=== PATIENT | female | born 1980 | race Hispanic/Latino ===

== ENCOUNTER 2017-05-27 00:22 | Inpatient (IN) | payer BC ==
--- NOTE | 2017-05-27 00:40 | ED PDOC ---
Arrival/HPI - General Chief Complaint: Female Genitourinary Time Seen by Provider: 05/27/17 00:27 Historian: Patient - History of Present Illness Narrative History of Present Illness (Text): 05/27/17 00:37 A 37 year old female, whose past medical history includes herniated disc, presents to the emergency department complaining of left sided flank pain that began this evening. The patient states that she is also experiencing nausea. The patient denies fevers, chills, headache, dizziness, chest pain, shortness of breath, dyspnea on exertion, cough, abdominal pain,vomiting, diarrhea, neck pain, urinary/bowel changes, or any other complaint. Time/Duration: Other (This Evening) Symptom Onset: Sudden Symptom Course: Worsening Activities at Onset: Rest, Light Context: Home Past Medical History - Provider Review Nursing Documentation Reviewed: Yes - Infectious Disease Hx of Infectious Diseases: None - Tetanus Immunization Tetanus Immunization: Unknown - Cardiac Hx Cardiac Disorders: No - Pulmonary Hx Respiratory Disorders: No - Neurological Hx Neurological Disorder: No - Renal Hx Kidney Stones: Yes - Hematological/Oncological Hx Blood Transfusions: No - Musculoskeletal/Rheumatological Hx Herniated Disk: Yes - Genitourinary/Gynecological Hx Urinary Tract Infection: Yes - Psychiatric Hx Substance Use: No - Surgical History Hx Orthopedic Surgery: Yes (Rt. arm) - Anesthesia Hx Anesthesia Reactions: No Hx Malignant Hyperthermia: No Family/Social History - Physician Review Nursing Documentation Reviewed: Yes Family/Social History: No Known Family HX Smoking Status: Heavy Smoker > 10 Cigarettes Daily Hx Alcohol Use: Yes Frequency of alcohol use: Daily Hx Substance Use: No Allergies/Home Meds Allergies/Adverse Reactions: Allergies No Known Allergies Allergy (Verified 10/23/15 15:44) Review of Systems - Physician Review All systems were reviewed & negative as marked: Yes - Review of Systems Constitutional: absent: Fevers, Night Sweats Respiratory: absent: SOB, Cough Cardiovascular: absent: Chest Pain, PRUITT Gastrointestinal: Nausea. absent: Abdominal Pain, Stool Changes, Diarrhea, Vomiting Genitourinary Female: absent: Urine Output Changes Musculoskeletal: Back Pain (Left flank pain). absent: Neck Pain Neurological: absent: Headache, Dizziness Physical Exam Vital Signs Reviewed: Yes Vital Signs Temp Pulse Resp BP Pulse Ox 05/27/17 00:29 97.6 F 88 17 151/99 H 100 Temperature: Afebrile Blood Pressure: Hypertensive Pulse: Regular Respiratory Rate: Normal Appearance: Positive for: Well-Appearing, Non-Toxic, Comfortable Pain Distress: None Mental Status: Positive for: Alert and Oriented X 3 - Systems Exam Head: Present: Atraumatic, Normocephalic Pupils: Present: PERRL Extroacular Muscles: Present: EOMI Conjunctiva: Present: Normal Mouth: Present: Moist Mucous Membranes Neck: Present: Normal Range of Motion Respiratory/Chest: Present: Clear to Auscultation, Good Air Exchange. No: Respiratory Distress, Accessory Muscle Use Cardiovascular: Present: Regular Rate and Rhythm, Normal S1, S2. No: Murmurs Abdomen: Present: Normal Bowel Sounds. No: Tenderness, Distention, Peritoneal Signs Back: Present: CVA Tenderness (Left CVA Tenderness) Upper Extremity: Present: Normal Inspection. No: Cyanosis, Edema Lower Extremity: Present: Normal Inspection. No: Edema Neurological: Present: GCS=15, CN II-XII Intact, Speech Normal Skin: Present: Warm, Dry, Normal Color. No: Rashes Psychiatric: Present: Alert, Oriented x 3, Normal Insight, Normal Concentration Medical Decision Making ED Course and Treatment: 05/27/17 00:41 Impression: A 37 year old female presents to the emergency department complaining of left sided flank pain with associated nausea that began this evening. Plan: -- Abdomen/Pelvis CT -- Urinalysis -- Morphine, Zofran, and IV Fluids -- Reassess and disposition Progress Notes: CT Abdomen and Pelvis Without Intravenous Contrast EXAM DATE/TIME: 05/27/2017 12:39 AM Dictated and Authenticated by: Nevaeh Garnett MD 05/27/2017 2:15 AM Eastern Time ([place] & [place]) IMPRESSION: - Severe left hydronephrosis, mildly increased in degree compared to a prior CT , with no causative obstructing stone identified. This could be due to a chronic left UPJ obstruction, although cannot rule out a recently passed stone or a left-sided urinary tract infection. - Mild bladder wall thickening. This is a nonspecific finding, but can be seen with cystitis. Recommend clinical correlation. - Mild biliary ductal dilatation, also seen on the prior CT, cause not identified. Recommend correlation with LFTs for laboratory evidence of biliary obstruction, and further work up as indicated. 05/27/17 02:26: Case discussed in detail with Dr. Cleve Valdez who accepts patient to her service. - Lab Interpretations Microbiology Results: Microbiology Results 05/27/17 01:00 Blood-Venous Blood Culture - Final NO GROWTH AFTER 5 DAYS 05/27/17 01:00 Blood-Venous Gram Stain - Final TEST NOT PERFORMED 05/27/17 00:30 Blood-Venous Blood Culture - Final NO GROWTH AFTER 5 DAYS 05/27/17 00:30 Blood-Venous Gram Stain - Final TEST NOT PERFORMED 05/27/17 00:30 Urine,Clean Catch Urine Culture - Final Escherichia Coli Lab Results: 05/27/17 00:30 05/27/17 00:30 Lab Results 05/27/17 00:30: pO2 63 H, VBG pH 7.39, VBG pCO2 41.0, VBG HCO3 24.8, VBG Total CO2 26.1, VBG O2 Sat (Calc) 95.8 H, VBG Base Excess -0.2 L, VBG Potassium 3.5 L , Sodium 139.0, Chloride 107.0, Glucose 95, Lactate 2.0, FiO2 21.0, Venous Blood Potassium 3.5 L 05/27/17 00:30: Sodium 143, Chloride 106, Potassium 3.5 L, Carbon Dioxide 25, Anion Gap 16, BUN 5 L, Creatinine 0.7, Est GFR ( Amer) > 60, Est GFR (Non -Af Amer) > 60, Random Glucose 94, Calcium 9.5, Total Bilirubin 0.4, AST 35, ALT 32, Alkaline Phosphatase 89, Total Protein 7.8, Albumin 4.3, Globulin 3.5, Albumin/Globulin Ratio 1.2 05/27/17 00:30: Urine Color Yellow, Urine Appearance Clear, Urine pH 7.5, Ur Specific [place] 1.020, Urine Protein 100 H, Urine Glucose (UA) Negative, Urine Ketones Negative, Urine Blood Trace-intact H, Urine Nitrate Negative, Urine Bilirubin Negative, Urine Urobilinogen 1.0 H, Ur Leukocyte Esterase Large H, Urine RBC 0 - 2, Urine WBC 25 - 30, Ur Epithelial Cells 1 - 3, Urine Bacteria Mod 05/27/17 00:30: WBC 14.0 H D, RBC 4.26, Hgb 13.7, Hct 40.3, MCV 94.6, MCH 32.2, MCHC 34.0, RDW 13.8, Plt Count 335, MPV 9.3, Gran % 66.8, Lymph % (Auto) 24.6, [place] % (Auto) 6.3 H, Eos % (Auto) 2.0, Baso % (Auto) 0.3, Gran # 9.32 H, Lymph # (Auto) 3.4, [place] # (Auto) 0.9 H, Eos # (Auto) 0.3, Baso # (Auto) 0.04 I have reviewed the lab results: Yes - RAD Interpretation Radiology Orders: 05/27/17 00:39 ABD & PELVIS W/O PO OR IV CONT [CT] Stat - Medication Orders Current Medication Orders: Discontinued Medications Acetaminophen (Tylenol 325mg Tab) 650 mg PO Q4H PRN PRN Reason: Fever >100.5 F Last Admin: 05/27/17 15:58 Dose: 650 mg [facility] Pain/Vitals Document 05/27/17 15:58 DSZ (Rec: 05/27/17 15:59 DSZ [facility] [id number] Pain Reassessment Is This A Pain ReAssessment? No Sleep Is patient sleeping during reassessment? No Presence of Pain Presence of Pain No Vitals Temperature (97.6 F-99.6 F) 101.8 F Temperature Source Oral Re-Assess: [facility] Pain/Vitals Document 05/27/17 16:58 DSZ (Rec: 05/27/17 17:22 DSZ [facility] [id number] Pain Reassessment Is This A Pain ReAssessment? No Sleep Is patient sleeping during reassessment? No Vitals Temperature (97.6 F-99.6 F) 100 F Temperature Source Axillary Acetaminophen (Tylenol 325mg Tab) 650 mg PO Q6H PRN PRN Reason: Fever >100.4 F Last Admin: 05/29/17 17:51 Dose: 650 mg [facility] Pain/Vitals Document 05/29/17 17:51 LMN (Rec: 05/29/17 17:51 LMN [facility] [id number] Pain Reassessment Is This A Pain ReAssessment? No Presence of Pain Presence of Pain Yes Pain Scale Used Pain Scale Used Numeric Location Left, Right or Bilateral Bilateral Pain Location Body Site Abdomen Description Throbbing Re-Assess: [facility] Pain/Vitals Document 05/29/17 18:51 MAD (Rec: 05/30/17 04:58 MAD [id number]) Pain Reassessment Is This A Pain ReAssessment? Yes Sleep Is patient sleeping during reassessment? Yes Guaifenesin/Dextromethorphan (Robitussin Dm) 5 ml PO Q4H PRN PRN Reason: Cough Last Admin: 05/28/17 10:21 Dose: 5 ml Hydromorphone HCl (Dilaudid) 2 mg IVP STAT STA Stop: 05/27/17 01:09 Last Admin: 05/27/17 01:18 Dose: 2 mg MAR Pain Assessment Document 05/27/17 01:18 RD (Rec: 05/27/17 01:18 RD [id number]) Pain Reassessment Is this a pain reassessment? No Sleep Is patient sleeping during reassessment? No Presence of Pain Presence of Pain Yes IVP Administration Document 05/27/17 01:18 RD (Rec: 05/27/17 01:18 RD [id number]) Charges for Administration # of IVP Administrations 1 Sodium Chloride (Sodium Chloride 0.9%) 1,000 mls @ 80 mls/hr IV .[id number] [facility] Last Admin: 05/29/17 04:37 Dose: 80 mls/hr eMAR Start Stop Document 05/29/17 04:37 MJ (Rec: 05/29/17 04:37 MJ [facility] [id number]) Intravenous Solution Start Date 05/29/17 Start Time 04:37 Ceftriaxone Sodium (Rocephin 1 Gram Ivpb) 1 gm in 100 mls @ 100 mls/hr IVPB DAILY VILLA PRN Reason: Protocol Last Admin: 05/28/17 10:21 Dose: 100 mls/hr eMAR Start Stop Document 05/28/17 10:21 LMN (Rec: 05/28/17 11:21 LMN [facility] [id number]) Intravenous Solution Start Date 05/28/17 Start Time 10:21 Sodium Chloride (Sodium Chloride 0.9%) 1,000 mls @ 100 mls/hr IV .Q10H STA Stop: 05/27/17 12:26 Last Admin: 05/27/17 04:03 Dose: 100 mls/hr eMAR Start Stop Document 05/27/17 04:03 RD (Rec: 05/27/17 04:03 RD [id number]) Intravenous Solution Start Date 05/27/17 Start Time 04:03 Sodium Chloride (Sodium Chloride 0.9%) 1,000 mls @ 125 mls/hr IV .Q8H [facility] Last Admin: 05/30/17 10:43 Dose: Not Given Non-Admin Reason: Patient Refused Meropenem 500 mg/ Sodium (Chloride) 50 mls @ 100 mls/hr IVPB Q8 VILLA PRN Reason: Protocol Stop: 06/04/17 15:16 Last Admin: 05/29/17 06:02 Dose: 100 mls/hr eMAR Start Stop Document 05/29/17 06:02 MJ (Rec: 05/29/17 06:02 MJ [facility] [id number]) Intravenous Solution Start Date 05/29/17 Start Time 06:02 End Date 05/29/17 End time 06:32 Total Infusion Time 30 Potassium Chloride (Potassium Chloride 10 Meq/100 Ml) 10 meq in 100 mls @ 50 mls/hr IVPB ONCE ONE Stop: 05/28/17 17:10 Last Admin: 05/28/17 17:26 Dose: 50 mls/hr eMAR Start Stop Document 05/28/17 17:26 LMN (Rec: 05/28/17 17:26 LMN [facility] [id number]) Intravenous Solution Start Date 05/28/17 Start Time 18:00 Ceftriaxone Sodium (Rocephin 2 Gm Ivpb) 2 gm in 100 mls @ 100 mls/hr IVPB DAILY VILLA PRN Reason: Protocol Last Admin: 05/30/17 10:39 Dose: 100 mls/hr eMAR Start Stop Document 05/30/17 10:39 DSZ (Rec: 05/30/17 10:39 DSZ [facility] [id number]) Intravenous Solution Start Date 05/30/17 Start Time 10:39 Morphine Sulfate (Morphine) 2 mg IVP STAT STA Stop: 05/27/17 00:42 Last Admin: 05/27/17 00:53 Dose: 2 mg MAR Pain Assessment Document 05/27/17 00:53 RD (Rec: 05/27/17 00:53 RD [id number]) Pain Reassessment Is this a pain reassessment? No Sleep Is patient sleeping during reassessment? No Presence of Pain Presence of Pain Yes IVP Administration Document 05/27/17 00:53 RD (Rec: 05/27/17 00:53 RD [id number]) Charges for Administration # of IVP Administrations 1 Morphine Sulfate (Morphine) 2 mg IVP Q4H PRN PRN Reason: Pain, moderate (4-7) Last Admin: 05/27/17 08:41 Dose: 2 mg MAR Pain Assessment Document 05/27/17 08:41 DSZ (Rec: 05/27/17 08:41 DSZ [id number]) Pain Reassessment Is this a pain reassessment? No Sleep Is patient sleeping during reassessment? No Presence of Pain Presence of Pain Yes Pain Scale Used Pain Scale Used Numeric Location Left, Right or Bilateral Left Upper or Lower Lower Pain Location Body Site Back Description Description Sharp Intensity of Pain at present 9 Acceptable Level of Pain 3 Pain Behavior Moaning Withdrawal from Touch Restlessness Facial Grimacing Aggravating Factors Contant Alleviating Factors/Management Medication Techniques Alleviating Factors Medication IVP Administration Document 05/27/17 08:41 DSZ (Rec: 05/27/17 08:41 DSZ [id number]) Charges for Administration # of IVP Administrations 1 Re-Assess: MAR Pain Assessment Document 05/27/17 09:41 DSZ (Rec: 05/27/17 09:52 DSZ [id number]) Pain Reassessment Is this a pain reassessment? No Sleep Is patient sleeping during reassessment? No Presence of Pain Presence of Pain Yes Pain Scale Used Pain Scale Used Numeric Location Left, Right or Bilateral Left Upper or Lower Lower Pain Location Body Site Back Description Description Intermittent Intensity of Pain at present 7 Acceptable Level of Pain 3 Pain Behavior Withdrawal from Touch Alleviating Factors/Management Medication Techniques Alleviating Factors Medication Morphine Sulfate (Morphine) 2 mg IVP STAT STA Stop: 05/27/17 03:16 Last Admin: 05/27/17 03:51 Dose: 2 mg ESAU Pain Assessment Document 05/27/17 03:51 RD (Rec: 05/27/17 03:51 RD [id number]) Pain Reassessment Is this a pain reassessment? No Sleep Is patient sleeping during reassessment? No Presence of Pain Presence of Pain Yes Location Left, Right or Bilateral Left Upper or Lower Lower Pain Location Body Site Back Description Description Constant IVP Administration Document 05/27/17 03:51 RD (Rec: 05/27/17 03:51 RD [id number]) Charges for Administration # of IVP Administrations 1 Morphine Sulfate (Morphine) 4 mg IVP STAT STA Stop: 05/27/17 06:26 Last Admin: 05/27/17 06:43 Dose: 4 mg ESAU Pain Assessment Document 05/27/17 06:43 PCO (Rec: 05/27/17 06:43 PCO [id number] Pain Reassessment Is this a pain reassessment? No Sleep Is patient sleeping during reassessment? No Presence of Pain Presence of Pain Yes Pain Scale Used Pain Scale Used Numeric Location Left, Right or Bilateral Left Pain Location Body Site Abdomen Description Description Intermittent Intensity of Pain at present 9 Acceptable Level of Pain 0/10 Variations/Patterns sharp Pain Behavior Moaning Grasping Site Facial Grimacing Aggravating Factors Exercise/Activity Alleviating Factors/Management Medication Techniques Relaxation Techniques Inactivity Alleviating Factors Inactivity Effects of Pain can't sleep IVP Administration Document 05/27/17 06:43 PCO (Rec: 05/27/17 06:43 PCO [id number] Charges for Administration # of IVP Administrations 1 Re-Assess: MAR Pain Assessment Document 05/27/17 07:43 DSZ (Rec: 05/27/17 18:41 DSZ [facility] [id number]) Pain Reassessment Is this a pain reassessment? Yes Sleep Is patient sleeping during reassessment? No Presence of Pain Presence of Pain Yes Pain Scale Used Pain Scale Used Numeric Location Left, Right or Bilateral Left Upper or Lower Lower Pain Location Body Site Back Description Description Intermittent Intensity of Pain at present 6 Acceptable Level of Pain 2 Pain Behavior Withdrawal from Touch Refusal to Eat Alleviating Factors/Management Medication Techniques Alleviating Factors Medication Morphine Sulfate (Morphine) 4 mg IVP Q4H PRN PRN Reason: Pain, severe (8-10) Last Admin: 05/28/17 18:33 Dose: 4 mg ESAU Pain Assessment Document 05/28/17 18:33 LMN (Rec: 05/28/17 18:34 LMN [facility] [id number]) Pain Reassessment Is this a pain reassessment? No Presence of Pain Presence of Pain Yes Pain Scale Used Pain Scale Used Numeric Location Left, Right or Bilateral Left Pain Location Body Site Abdomen Lumbar Description Description Intermittent Intensity of Pain at present 8 Pain Behavior Moaning Perspiration Facial Grimacing IVP Administration Document 05/28/17 18:33 LMN (Rec: 05/28/17 18:34 LMN [facility] [id number]) Charges for Administration # of IVP Administrations 1 Re-Assess: ESAU Pain Assessment Document 05/28/17 19:33 MJ (Rec: 05/28/17 23:00 MJ [facility] [id number]) Pain Reassessment Is this a pain reassessment? No Sleep Is patient sleeping during reassessment? No Presence of Pain Presence of Pain No Morphine Sulfate (Morphine) 4 mg IVP Q4H PRN PRN Reason: Pain, severe (8-10) Stop: 05/30/17 10:37 Last Admin: 05/29/17 20:26 Dose: 4 mg IVP Administration Document 05/29/17 20:26 MAD (Rec: 05/29/17 20:26 MAD [facility] [id number]) Charges for Administration # of IVP Administrations 1 Ondansetron HCl (Zofran Inj) 4 mg IVP STAT STA Stop: 05/27/17 00:42 Last Admin: 05/27/17 00:50 Dose: 4 mg IVP Administration Document 05/27/17 00:50 RD (Rec: 05/27/17 00:52 RD [id number]) Charges for Administration # of IVP Administrations 1 Ondansetron HCl (Zofran Inj) 4 mg IVP Q6H PRN PRN Reason: Nausea/Vomiting Last Admin: 05/27/17 16:34 Dose: 4 mg IVP Administration Document 05/27/17 16:34 DSZ (Rec: 05/27/17 16:35 DSZ [facility] [id number]) Charges for Administration # of IVP Administrations 1 Ondansetron HCl (Zofran Inj) 4 mg IVP Q6H PRN PRN Reason: Nausea/Vomiting Last Admin: 05/27/17 21:06 Dose: 4 mg IVP Administration Document 05/27/17 21:06 KP (Rec: 05/27/17 21:06 KP [facility] [id number]) Charges for Administration # of IVP Administrations 1 Potassium Chloride (K-Dur 20 Meq Er Tab) 40 meq PO STAT STA Stop: 05/27/17 06:31 Last Admin: 05/27/17 06:42 Dose: 40 meq - Scribe Statement The provider has reviewed the documentation as recorded by the Kyibe Cassie Barreto Provider Kyibe Attestation: All medical record entries made by the Scribe were at my direction and personally dictated by me. I have reviewed the chart and agree that the record accurately reflects my personal performance of the history, physical exam, medical decision making, and the department course for this patient. I have also personally directed, reviewed, and agree with the discharge instructions and disposition. Disposition/Present on Arrival - Present on Arrival Any Indicators Present on Arrival: No History of DVT/PE: No History of Uncontrolled Diabetes: No Urinary Catheter: No History of Decub. Ulcer: No History Surgical Site Infection Following: None - Disposition Have Diagnosis and Disposition been Completed?: Yes Diagnosis: Hydronephrosis, Pyelonephritis Disposition: HOSPITALIZED Disposition Time: 02:30 Condition: GOOD
[2017-05-27] MEDS ORDERED: Morphine 2 mg/ml ISec IVP STA ×2 (00:41→03:15)
[2017-05-27] MEDS: Sodium Chloride 0.9% 1,000 ML IV SCH ×2 (00:52→15:57)
[2017-05-27 01:01] LABS: PH,URINE 7.5 (4.7-8.0); URINE BILIRUBIN NEGATIVE (NEGATIVE); URINE BLOOD TRACE-INTACT (NEGATIVE); URINE GLUCOSE (UA) NEGATIVE (NEGATIVE); URINE LEUKOCYTE ESTERASE LARGE Leu/uL (NEGATIVE); URINE NITRATE NEGATIVE (NEGATIVE); URINE PROTEIN 100 mg/dL (<30 mg/dL)
[2017-05-27 01:03] LABS: BASO # 0.04 K/mm3 (0.0-2.0); BASO % 0.3 % (0.0-3.0); EOS # 0.3 (0.0-0.7); GRAN # 9.32 (1.4-6.5); GRAN % 66.8 % (50.0-68.0); HEMOGLOBIN 13.7 g/dL (12.0-16.0); LYMPH # 3.4 (1.2-3.4); LYMPH % 24.6 % (22.0-35.0); MEAN CELL VOLUME 94.6 fl (80.0-105.0); MEAN CORPUSCULAR HEMOGLOBIN 32.2 pg (25.0-35.0); MEAN PLATELET VOLUME 9.3 fl (7.0-11.0); MONO # 0.9 (0.1-0.6); MONO % 6.3 % (1.0-6.0); RBC 4.26 10^6/uL (3.5-6.1); RED CELL DISTRIBUTION WIDTH 13.8 % (11.5-14.5)
[2017-05-27] MEDS ORDERED: HYDROmorphone 2 mg/ml ISec IVP STA (01:08)
[2017-05-27 01:11] LABS: URINE APPEARANCE CLEAR (CLEAR); URINE COLOR YELLOW (YELLOW)
[2017-05-27 01:14] LABS: VENOUS BLOOD GAS BASE EXCESS -0.2 mmol/L (0.0-2.0); VENOUS BLOOD GAS PO2 63 mm/Hg (30-55); VENOUS BLOOD PH 7.39 (7.32-7.43)
[2017-05-27 01:15] LABS: URINE BACTERIA MOD (NEG); URINE RBC 0 - 2 /hpf (0-2); URINE WBC 25 - 30 /hpf (0-6)
[2017-05-27 01:31] LABS: ALBUMIN 4.3 g/dL (3.0-4.8); AST/SGOT 35 U/L (14-36); BLOOD UREA NITROGEN 5 mg/dL (7-21); CALCIUM 9.5 mg/dL (8.4-10.5); GFR AFRICAN-AMERICAN > 60; GFR NON-AFRICAN AMERICAN > 60
[2017-05-27 01:44] LABS: ALB/GLOB RATIO 1.2 (1.1-1.8); ALT/SGPT 32 U/L (7-56)
--- NOTE | 2017-05-27 02:15 | CT ---
EXAM: CT Abdomen and Pelvis Without Intravenous Contrast EXAM DATE/TIME: 05/27/2017 12:39 AM CLINICAL HISTORY: 37 years old, female; Pain; Abdominal pain; Flank; Left; Prior surgery; Surgery date: 6+ months; Surgery type: Kidney stent; Additional info: Flank pain TECHNIQUE: Axial computed tomography images of the abdomen and pelvis without intravenous contrast. All CT scans at this facility use one or more dose reduction techniques, viz.: automated exposure control; ma/kV adjustment per patient size (including targeted exams where dose is matched to indication; i.e. head); or iterative reconstruction technique. Coronal and sagittal reformatted images were created and reviewed. COMPARISON: Prior CT abdomen and pelvis of 2015-10-21 FINDINGS: LOWER THORAX: No infiltrate seen in the lung bases. ABDOMEN: LIVER: No acute abnormality of the liver identified. GALLBLADDER AND BILE DUCTS: Mild biliary ductal dilatation, also seen on the prior study, with the common bile duct measuring up to 7 mm in diameter. No cause for this finding is seen by CT. No radiopaque common bile duct stones are visualized. No CT evidence of acute cholecystitis. PANCREAS: No CT evidence of acute pancreatitis. SPLEEN: No acute abnormality of the spleen identified. ADRENALS: No acute abnormality of the adrenal glands identified. KIDNEYS AND URETERS: Severe left hydronephrosis, mildly increased in degree compared to the prior CT. Mild left perinephric stranding. Mild left hydroureter. No causative obstructing stone is seen. STOMACH AND BOWEL: No acute abnormality of the stomach, small bowel or colon identified. No evidence of bowel obstruction. APPENDIX: Appendix is seen, and is within normal limits in appearance. PELVIS: BLADDER: Mild thickening of the bladder wall. REPRODUCTIVE:No acute abnormality of the reproductive organs is seen. No acute abnormality of the uterus identified. No evidence of large adnexal masses. ABDOMEN and PELVIS: INTRAPERITONEAL SPACE: No evidence of free intraperitoneal air or fluid. BONES/JOINTS: Marked degenerative disc disease at L5-S1. SOFT TISSUES: No acute abnormality of the visualized soft tissues is seen. VASCULATURE: No evidence of abdominal aortic aneurysm. No evidence of periaortic hemorrhage. LYMPH NODES: No evidence of diffuse lymphadenopathy. IMPRESSION: - Severe left hydronephrosis, mildly increased in degree compared to a prior CT, with no causative obstructing stone identified. This could be due to a chronic left UPJ obstruction, although cannot rule out a recently passed stone or a left-sided urinary tract infection. - Mild bladder wall thickening. This is a nonspecific finding, but can be seen with cystitis. Recommend clinical correlation. - Mild biliary ductal dilatation, also seen on the prior CT, cause not identified. Recommend correlation with LFTs for laboratory evidence of biliary obstruction, and further work up as indicated. - See above for remaining findings.
[2017-05-27] MEDS ORDERED: Sodium Chloride 0.9% 1,000 ML IV STA (02:27)
[2017-05-27] MEDS ORDERED: Morphine 2 mg/ml ISec IVP PRN (02:29)
[2017-05-27 05:32] VITALS: BMI 25.0
[2017-05-27] MEDS ORDERED: Morphine 4 mg/ml ISec IVP STA (06:25)
--- NOTE | 2017-05-27 06:28 | CP.PCM.PN ---
Subjective - Date & Time of Evaluation Date of Evaluation: 05/27/17 Time of Evaluation: 06:27 - Subjective Subjective: Patient was seen at bedside. She complained of severe pain in left flank. Has received morphine sulfate earlier in the ER. Pain has come back, radiates down to leg. No other complaints. Denies nausea, vomiting. Medical record was reviewed. This 37 year old woman was admitted with left flank pain, leukocytosis, pyelonephritis. Has PMH of uterine fibroid, renal calculus. BP 165/108 No hx of htn. Objective - Vital Signs/Intake and Output Vital Signs (last 24 hours): Temp Pulse Resp BP Pulse Ox 98.5 F 99 H 20 151/99 H 100 05/27/17 05:11 05/27/17 05:11 05/27/17 05:11 05/27/17 00:29 05/27/17 00:29 - Medications Medications: Current Medications Acetaminophen (Tylenol 325mg Tab) 650 mg PO Q4H PRN PRN Reason: Fever >100.5 F Sodium Chloride (Sodium Chloride 0.9%) 1,000 mls @ 80 mls/hr IV .[id number] [facility] Last Admin: 05/27/17 00:52 Dose: 80 mls/hr Ceftriaxone Sodium (Rocephin 1 Gram Ivpb) 1 gm in 100 mls @ 100 mls/hr IVPB DAILY VILLA PRN Reason: Protocol Sodium Chloride (Sodium Chloride 0.9%) 1,000 mls @ 100 mls/hr IV .Q10H STA Stop: 05/27/17 12:26 Last Admin: 05/27/17 04:03 Dose: 100 mls/hr Morphine Sulfate (Morphine) 2 mg IVP Q4H PRN PRN Reason: Pain, moderate (4-7) Morphine Sulfate (Morphine) 4 mg IVP STAT STA Stop: 05/27/17 06:26 - Constitutional Appears: Well, No Acute Distress - Head Exam Head Exam: ATRAUMATIC, NORMAL INSPECTION, NORMOCEPHALIC - Eye Exam Eye Exam: Normal appearance - ENT Exam ENT Exam: Normal External Ear Exam - Neck Exam Neck Exam: Normal Inspection - Respiratory Exam Respiratory Exam: NORMAL BREATHING PATTERN - Cardiovascular Exam Cardiovascular Exam: absent: JVD - GI/Abdominal Exam GI & Abdominal Exam: absent: Distended - Rectal Exam Rectal Exam: Deferred - Exam Additional comments: Deferred. - Extremities Exam Extremities Exam: Normal Inspection - Back Exam Back Exam: rash noted - Neurological Exam Neurological Exam: Alert, Awake, Oriented x3 - Psychiatric Exam Psychiatric exam: Normal Affect, Normal Mood - Skin Skin Exam: Normal Color Assessment and Plan - Assessment and Plan (Free Text) Assessment: Left flank pain. Pyelonephrtitis. Leukocytosis. Hypokalemia. History of utreine fibroid. Plan: Morphine sulfate 4 mg IV x 1. K-Dur. Continue present management as per PMD.
[2017-05-27] MEDS ORDERED: Potassium Chloride 20 mEq ER Tab PO STA (06:30)
[2017-05-27 08:01] LABS: VENOUS BLOOD GAS BASE EXCESS -2.9 mmol/L (0.0-2.0); VENOUS BLOOD GAS PO2 92 mm/Hg (30-55); VENOUS BLOOD PH 7.31 (7.32-7.43)
[2017-05-27] MEDS: cefTRIAXone 1 gm 1 GM/100 ML BAG IVPB SCH (11:12)
--- NOTE | 2017-05-27 14:03 | HP ---
HISTORY OF PRESENT ILLNESS: The patient is 37 years old, came to emergency room because of severe left flank pain. The patient states she had similar episode last year. Denies any nausea or vomiting. She states she has similar episode last year where she was admitted for sepsis. At that point, she has had pyelonephritis and hydronephrosis. At that point, the patient was given IV antibiotic and she was discharged home on Cipro and iron supplementation. At that point, her admission diagnoses were anemia, acute pyelonephritis, sepsis and hydronephrosis. PAST MEDICAL HISTORY: The patient states she has no significant past medical history. Gets high blood pressure when she is in pain. ALLERGY: SHE IS NOT ALLERGIC TO ANY MEDICATION. MEDICATIONS AT HOME: She is not on any medication at home. SOCIAL HISTORY: She is single. Does smoke once in a while and does drink socially. REVIEW OF SYSTEMS: Significant for left flank pain and she stated when she put fist in her left back, she feels better. PHYSICAL EXAMINATION: GENERAL: She is awake, alert, oriented, communicative. VITAL SIGNS: She has temperature of 99.2, pulse 96, respirations 22, blood pressure 165/108. LUNGS: Bilateral good airflow. No rhonchi or crackle. HEART: S1 and S2 audible. ABDOMEN: Soft. Nontender. No rebound. No guarding. NEUROLOGIC: The patient is awake and alert, able to communicate. Has left flank tenderness. LABORATORY EXAM: WBC is 14, hemoglobin 13.7, hematocrit 40, platelet of 335. Chemistry: Sodium 143, potassium 3.5, chloride 106, CO2 of 25, BUN 5, creatinine 0.7, blood sugar 194. Urinalysis shows large leukocyte, wbc is 25-30. CT scan of the abdomen and pelvis was done that shows severe left hydronephrosis, mildly increased in degrees compared to prior CT with no positive obstructing stone. It could be due to chronic left UPJ obstruction or recently passed stone on the left-sided urinary tract. There is mild bladder wall thickening along with biliary ductal dilatation. ASSESSMENT: 1. Left flank pain. 2. Pyelonephritis. 3. Fibroid uterus. 4. Leukocytosis. 5. Hypokalemia. PLAN: The patient will be given analgesic. Potassium has been supplemented. We will continue on Rocephin. We will continue on IV fluid, analgesic. I will start antibiotic. Wait for urine cultures. Awaiting Dr. Heath's evaluation. We will reevaluate patient in the a.m. Claudy Valdez MD
[2017-05-27] MEDS: Morphine 4 mg/ml ISec IVP PRN ×2 (16:35→21:06)
--- NOTE | 2017-05-27 19:03 | US ---
HISTORY: ??? retained tampon COMPARISON: None available. TECHNIQUE: Transabdominal FINDINGS: UTERUS: Measures 6.9 x 3.0 x 3.9 cm. Normal in size and appearance. No fibroid or other mass lesion seen. ENDOMETRIUM: Measures 6 mm in diameter. Unremarkable. CERVIX: No cervical abnormality identified. RIGHT OVARY: Measures 2.7 x 1.8 x 2.0 cm. No solid mass. Normal flow. LEFT OVARY: Measures 2.8 x 1.9 x 2.9 cm. No solid mass. Normal flow. FREE FLUID: No significant free fluid noted. OTHER FINDINGS: None. IMPRESSION: Unremarkable examination.
[2017-05-28 08:39] LABS: BASO # 0.02 K/mm3 (0.0-2.0); BASO % 0.1 % (0.0-3.0); EOS % 0.1 % (1.5-5.0); GRAN # 18.88 (1.4-6.5); GRAN % 85.9 % (50.0-68.0); LYMPH # 1.3 (1.2-3.4); LYMPH % 5.7 % (22.0-35.0); MEAN CELL VOLUME 94.6 fl (80.0-105.0); MEAN CORPUSCULAR HEMOGLOBIN 31.1 pg (25.0-35.0); MEAN CORPUSCULAR HGB CONC 32.9 g/dl (31.0-37.0); MEAN PLATELET VOLUME 9.8 fl (7.0-11.0); MONO # 1.8 (0.1-0.6); MONO % 8.2 % (1.0-6.0); RBC 3.86 10^6/uL (3.5-6.1)
[2017-05-28 08:54] LABS: ALB/GLOB RATIO 1.1 (1.1-1.8); ALBUMIN 3.3 g/dL (3.0-4.8); ALT/SGPT 27 U/L (7-56); AST/SGOT 21 U/L (14-36); BLOOD UREA NITROGEN 8 mg/dL (7-21); CALCIUM 8.3 mg/dL (8.4-10.5); GFR AFRICAN-AMERICAN > 60; GFR NON-AFRICAN AMERICAN > 60
[2017-05-28] MEDS: cefTRIAXone 1 gm 1 GM/100 ML BAG IVPB SCH (10:21)
[2017-05-28] MEDS: Sodium Chloride 0.9% 1,000 ML IV SCH (10:22)
[2017-05-28] MEDS ORDERED: guaiFENesin DM 100 mg-10 mg/5 ml UD PO PRN (10:45)
[2017-05-28] MEDS: Morphine 4 mg/ml ISec IVP PRN ×2 (14:46→18:33)
[2017-05-28] MEDS: Meropenem 500 MG in Sodium Chloride 0.9% 50 ML IVPB SCH ×2 (17:12→21:51)
--- NOTE | 2017-05-28 17:54 | PN ---
DATE: SUBJECTIVE: The patient is 37 years old, seen and examined. She states she feels a little better, want to eat. She had fever last night. Afebrile this morning. PHYSICAL EXAMINATION: VITAL SIGNS: She is afebrile, pulse 105, respirations 20, blood pressure 128/90. LUNGS: Bilateral fair airflow. No rhonchi or crackle. HEART: S1 and S2 audible. ABDOMEN: Soft, nontender. No rebound. No guarding. NEUROLOGIC: The patient is awake and alert, able to communicate. LABORATORY DATA: WBC is 22.0, hemoglobin 12, hematocrit 36, platelet 261. Chemistry: Sodium 138, potassium 3.4, chloride 105, CO2 of 24, BUN 8, creatinine 0.9, blood sugar of 93. Blood cultures are negative. Urine cultures show gram-negative rods. She has pelvic ultrasound done and it was unremarkable. ASSESSMENT: 1. Pyelonephritis. 2. History of nephrolithiasis. 3. Hydronephrosis. 4. Borderline hypertension. PLAN: We will start the patient on meropenem. ID consult by Dr. Read has been requested. Follow up her CBC and CMP in the a.m. Claudy Valdez MD
[2017-05-28] MEDS: Morphine 5 MG/ML SYRINGE IVP PRN (23:00)
[2017-05-29] MEDS: Morphine 5 MG/ML SYRINGE IVP PRN ×5 (02:53→20:26)
[2017-05-29] MEDS: Sodium Chloride 0.9% 1,000 ML IV SCH ×3 (04:37→19:00)
[2017-05-29] MEDS: Meropenem 500 MG in Sodium Chloride 0.9% 50 ML IVPB SCH (06:02)
[2017-05-29 08:32] LABS: BASO # 0.01 K/mm3 (0.0-2.0); BASO % 0.1 % (0.0-3.0); EOS # 0.1 (0.0-0.7); EOS % 0.9 % (1.5-5.0); GRAN # 12.72 (1.4-6.5); GRAN % 79.8 % (50.0-68.0); HEMOGLOBIN 10.7 g/dL (12.0-16.0); LYMPH # 1.8 (1.2-3.4); LYMPH % 11.1 % (22.0-35.0); MEAN CELL VOLUME 94.8 fl (80.0-105.0); MEAN CORPUSCULAR HGB CONC 32.7 g/dl (31.0-37.0); MEAN PLATELET VOLUME 10.3 fl (7.0-11.0); MONO # 1.3 (0.1-0.6); MONO % 8.1 % (1.0-6.0); RBC 3.45 10^6/uL (3.5-6.1); RED CELL DISTRIBUTION WIDTH 14.1 % (11.5-14.5); WHITE BLOOD COUNT 15.9 10^3/ul (4.5-11.0)
[2017-05-29 09:24] LABS: ALT/SGPT 21 U/L (7-56); AST/SGOT 12 U/L (14-36); BLOOD UREA NITROGEN 7 mg/dL (7-21); CALCIUM 8.7 mg/dL (8.4-10.5); GFR AFRICAN-AMERICAN > 60; GFR NON-AFRICAN AMERICAN > 60
[2017-05-29 11:05] LABS: URINE BILIRUBIN NEGATIVE (NEGATIVE); URINE BLOOD MODERATE (NEGATIVE); URINE GLUCOSE (UA) NEGATIVE (NEGATIVE); URINE LEUKOCYTE ESTERASE LARGE Leu/uL (NEGATIVE); URINE NITRATE NEGATIVE (NEGATIVE); URINE PROTEIN TRACE mg/dL (<30 mg/dL); URINE UROBILINOGEN 0.2 E.U./dL (<1 E.U./dL)
[2017-05-29 11:06] LABS: URINE APPEARANCE CLOUDY (CLEAR); URINE COLOR YELLOW (YELLOW)
[2017-05-29 11:08] LABS: URINE BACTERIA FEW (NEG); URINE RBC 0 - 2 /hpf (0-2); URINE WBC TNTC /hpf (0-6)
--- NOTE | 2017-05-29 13:19 | PCM.URO ---
Urology Progress Note - Objective Lab Studies: Reviewed (gu dx: chronic hyrdronephrosis gu plans : to be discussed / most likely out pt follow up) Lab Results Last 24 Hours: Laboratory Results - last 24 hr 05/29/17 05/29/17 05/29/17 08:24 08:24 11:00 WBC 15.9 H D RBC 3.45 L Hgb 10.7 L Hct 32.7 L MCV 94.8 MCH 31.0 MCHC 32.7 RDW 14.1 Plt Count 234 MPV 10.3 Gran % 79.8 H Lymph % (Auto) 11.1 L [place] % (Auto) 8.1 H Eos % (Auto) 0.9 L Baso % (Auto) 0.1 Gran # 12.72 H Lymph # (Auto) 1.8 [place] # (Auto) 1.3 H Eos # (Auto) 0.1 Baso # (Auto) 0.01 Sodium 137 Potassium 3.3 L Chloride 107 Carbon Dioxide 22 Anion Gap 11 BUN 7 Creatinine 0.7 Est GFR ( Amer) > 60 Est GFR (Non-Af Amer) > 60 Random Glucose 86 Calcium 8.7 Total Bilirubin 0.5 AST 12 L D ALT 21 Alkaline Phosphatase 74 Total Protein 6.1 Albumin 3.0 Globulin 3.1 Albumin/Globulin Ratio 1.0 L Urine Color Yellow Urine Appearance Cloudy Urine pH 7.0 Ur Specific [place] <= 1.005 Urine Protein Trace H Urine Glucose (UA) Negative Urine Ketones Negative Urine Blood Moderate H Urine Nitrate Negative Urine Bilirubin Negative Urine Urobilinogen 0.2 Ur Leukocyte Esterase Large H Urine RBC 0 - 2 Urine WBC Tntc Urine Bacteria Few Intake & Output: Intake & Output 05/28/17 05/29/17 05/29/17 18:59 06:59 18:59 Intake Total 1140 Balance 1140 Intake: Oral 1140 Other: # Voids Urine, Voided 3 # Bowel Movements 0 Vital Signs: Vital Signs - 24 hr 05/28/17 05/29/17 05/29/17 17:59 00:00 07:30 Temperature 99.9 F H 97.9 F 98.2 F Pulse Rate 103 H 96 H 86 Respiratory 20 20 20 Rate Blood Pressure 122/76 120/76 118/73 O2 Sat by Pulse 98 96 100 Oximetry
--- NOTE | 2017-05-29 13:34 | CP.PCM.CON ---
History of Present Illness - History of Present Illness History of Present Illness: 37 year old female with PMH of disc herniation, significant smoking history came in to [facility] complaining of left flank pain associated with some dysuria. She denies fever or chills at home but was noted to have fever on this admission, denies headache or dizziness, no chest pain, no cough or colds, no nausea or vomiting, no abdominal pain, no diarrhea. CT scan of the abdomen and pelvis is showing left sided hydronephrosis with possible uretero- pelvic junction obstruction. Urine cultures are showing E. coli. Infectious Diseases consult is requested to further evaluate and manage. Review of Systems - Review of Systems All systems: reviewed and no additional remarkable complaints except (as per HPI ) Past Patient History - Infectious Disease Hx of Infectious Diseases: None - Tetanus Immunizations Tetanus Immunization: Unknown - Past Social History Smoking Status: Current Some Days Smoker - CARDIAC Hx Cardiac Disorders: No - PULMONARY Hx Respiratory Disorders: No - NEUROLOGICAL Hx Neurological Disorder: No - RENAL Hx Kidney Stones: Yes - HEMATOLOGICAL/ONCOLOGICAL Hx Blood Transfusions: No - MUSCULOSKELETAL/RHEUMATOLOGICAL Hx Herniated Disk: Yes - GENITOURINARY/GYNECOLOGICAL Hx Urinary Tract Infection: Yes - PSYCHIATRIC Hx Substance Use: No - SURGICAL HISTORY Hx Orthopedic Surgery: Yes (Rt. arm) - ANESTHESIA Hx Anesthesia Reactions: No Hx Malignant Hyperthermia: No Meds Allergies/Adverse Reactions: Allergies Allergy/AdvReac Type Severity Reaction Status Date / Time No Known Allergies Allergy Verified 10/23/15 15:44 - Medications Medications: Current Medications Acetaminophen (Tylenol 325mg Tab) 650 mg PO Q6H PRN PRN Reason: Fever >100.4 F Last Admin: 05/28/17 10:22 Dose: 650 mg Guaifenesin/Dextromethorphan (Robitussin Dm) 5 ml PO Q4H PRN PRN Reason: Cough Last Admin: 05/28/17 10:21 Dose: 5 ml Sodium Chloride (Sodium Chloride 0.9%) 1,000 mls @ 125 mls/hr IV .Q8H VILLA Last Admin: 05/28/17 10:22 Dose: 125 mls/hr Meropenem 500 mg/ Sodium (Chloride) 50 mls @ 100 mls/hr IVPB Q8 VILLA PRN Reason: Protocol Stop: 05/28/17 22:29 Morphine Sulfate (Morphine) 4 mg IVP Q4H PRN PRN Reason: Pain, severe (8-10) Last Admin: 05/28/17 14:46 Dose: 4 mg Ondansetron HCl (Zofran Inj) 4 mg IVP Q6H PRN PRN Reason: Nausea/Vomiting Last Admin: 05/27/17 21:06 Dose: 4 mg Physical Exam - Constitutional Appears: Non-toxic - Head Exam Head Exam: NORMAL INSPECTION - ENT Exam ENT Exam: Mucous Membranes Moist - Neck Exam Neck exam: Negative for: Meningismus - Respiratory Exam Respiratory Exam: Decreased Breath Sounds. absent: Rales - Cardiovascular Exam Cardiovascular Exam: +S1, +S2 - GI/Abdominal Exam GI & Abdominal Exam: Soft. absent: Tenderness Results - Vital Signs Recent Vital Signs: Last Vital Signs Temp 98.5 F 05/28/17 07:30 Pulse 105 H 05/28/17 07:30 Resp 20 05/28/17 07:30 BP 128/90 05/28/17 07:30 Pulse Ox 98 05/28/17 07:30 - Labs Result Diagrams: 05/29/17 08:24 05/29/17 08:24 Labs: Laboratory Results - last 24 hr 05/28/17 05/28/17 08:26 08:26 WBC 22.0 H D RBC 3.86 Hgb 12.0 Hct 36.5 MCV 94.6 MCH 31.1 MCHC 32.9 RDW 14.0 Plt Count 261 MPV 9.8 Gran % 85.9 H Lymph % (Auto) 5.7 L [place] % (Auto) 8.2 H Eos % (Auto) 0.1 L Baso % (Auto) 0.1 Gran # 18.88 H Lymph # (Auto) 1.3 [place] # (Auto) 1.8 H Eos # (Auto) 0.0 Baso # (Auto) 0.02 Sodium 138 Potassium 3.4 L Chloride 105 Carbon Dioxide 24 Anion Gap 12 BUN 8 Creatinine 0.9 Est GFR ( Amer) > 60 Est GFR (Non-Af Amer) > 60 Random Glucose 93 Calcium 8.3 L Total Bilirubin 0.6 AST 21 ALT 27 Alkaline Phosphatase 87 Total Protein 6.3 Albumin 3.3 Globulin 3.0 Albumin/Globulin Ratio 1.1 Assessment & Plan - Assessment and Plan (Free Text) Plan: Assessment sepsis due to left sided pyelonephritis with E. coli in a patient with probable chronic UPJ obstruction history of severe sepsis secondary to left sided pyelonephritis with gram negative bacilli bacteremia associated with left sided hydronephrosis history of disc herniation in the back Plan patient was started on Merrem but can be switched to Rocephin; should get 10-14 days of antibiotics; can be switched to PO Levaquin 750 mg daily to complete therapy once ready for discharge follow up Urology evaluation and recommendations for the UPJ obstruction
[2017-05-29] MEDS: cefTRIAXone 2 GM IN NS 2 GM/100 ML BAG IVPB SCH (14:40)
--- NOTE | 2017-05-29 16:22 | PN ---
DATE: SUBJECTIVE: The patient is 37 years old, seen and examined. Still has flank pain, but not as much. Has been afebrile since yesterday. Eating and tolerating. PHYSICAL EXAMINATION: VITAL SIGNS: She is afebrile, pulse 86, respirations 20, blood pressure 118/73. LUNGS: Bilateral fair airflow. No rhonchi or crackle. HEART: S1 and S2 audible. ABDOMEN: Soft. Nontender. No rebound. No guarding. NEUROLOGIC: She is awake, alert, oriented, communicative, ambulatory. LABORATORY EXAM: WBC is 15.9, hemoglobin 10.7, hematocrit 32.7, platelet of 234. Chemistry: Sodium 137, potassium 3.3, chloride 107, CO2 of 22, BUN 7, creatinine 0.7, blood sugar of 56. She is growing E. coli in her urine. Blood cultures are negative. ASSESSMENT: 1. Left pyelonephritis with Escherichia coli urinary tract infection. 2. History of chronic ureteropelvic junction obstruction. 3. Leukocytosis, improving. PLAN: Currently, the patient is on Rocephin 2 g q. 24 hours and she is on IV fluid. Dr. Heath's input note is then appreciated. He will follow up the patient as outpatient once pain resolves and she is afebrile for 24 hours, she will be discharged in the a.m. Claudy Valdez MD
[2017-05-30 02:42] VITALS: RESP 16
[2017-05-30 08:05] VITALS: BP 136/91; PULSE 84; TEMP 98.6; O2SAT 95
--- NOTE | 2017-05-30 09:41 | CARD ---
APPROVED REPORT EKG Measurement Heart [id number] OK [id number] <Conclusion> Normal sinus rhythm Normal ECG
[2017-05-30] MEDS: cefTRIAXone 2 GM IN NS 2 GM/100 ML BAG IVPB SCH (10:39)
[2017-05-30] MEDS: Sodium Chloride 0.9% 1,000 ML IV SCH (10:43)
[2017-05-30 12:56] LABS: BASO # 0.02 K/mm3 (0.0-2.0); BASO % 0.2 % (0.0-3.0); EOS # 0.2 (0.0-0.7); EOS % 2.3 % (1.5-5.0); GRAN # 5.91 (1.4-6.5); GRAN % 70.6 % (50.0-68.0); HEMOGLOBIN 12.1 g/dL (12.0-16.0); LYMPH # 1.4 (1.2-3.4); LYMPH % 16.6 % (22.0-35.0); MEAN CELL VOLUME 93.2 fl (80.0-105.0); MEAN CORPUSCULAR HEMOGLOBIN 31.8 pg (25.0-35.0); MEAN CORPUSCULAR HGB CONC 34.2 g/dl (31.0-37.0); MEAN PLATELET VOLUME 9.8 fl (7.0-11.0); MONO # 0.9 (0.1-0.6); MONO % 10.3 % (1.0-6.0); RBC 3.8 10^6/uL (3.5-6.1); RED CELL DISTRIBUTION WIDTH 13.7 % (11.5-14.5); WHITE BLOOD COUNT 8.4 10^3/ul (4.5-11.0)
--- NOTE | 2017-05-30 16:37 | CP.PCM.PN ---
Subjective - Date & Time of Evaluation Date of Evaluation: 05/30/17 Time of Evaluation: 12:25 - Subjective Subjective: No fevers, not in distress. Objective - Vital Signs/Intake and Output Vital Signs (last 24 hours): Temp Pulse Resp BP Pulse Ox 98.2 F 86 20 118/73 100 05/29/17 07:30 05/29/17 07:30 05/29/17 07:30 05/29/17 07:30 05/29/17 07:30 Intake and Output: 05/29/17 05/29/17 06:59 18:59 Intake Total 1140 Balance 1140 - Medications Medications: Current Medications Acetaminophen (Tylenol 325mg Tab) 650 mg PO Q6H PRN PRN Reason: Fever >100.4 F Last Admin: 05/29/17 04:41 Dose: 650 mg Guaifenesin/Dextromethorphan (Robitussin Dm) 5 ml PO Q4H PRN PRN Reason: Cough Last Admin: 05/28/17 10:21 Dose: 5 ml Sodium Chloride (Sodium Chloride 0.9%) 1,000 mls @ 125 mls/hr IV .Q8H VILLA Last Admin: 05/28/17 10:22 Dose: 125 mls/hr Ceftriaxone Sodium (Rocephin 2 Gm Ivpb) 2 gm in 100 mls @ 100 mls/hr IVPB DAILY VILLA PRN Reason: Protocol Morphine Sulfate (Morphine) 4 mg IVP Q4H PRN PRN Reason: Pain, severe (8-10) Stop: 05/30/17 10:37 Last Admin: 05/29/17 12:02 Dose: 4 mg Ondansetron HCl (Zofran Inj) 4 mg IVP Q6H PRN PRN Reason: Nausea/Vomiting Last Admin: 05/27/17 21:06 Dose: 4 mg - Labs Labs: 05/29/17 08:24 05/29/17 08:24 - Constitutional Appears: Chronically Ill - Head Exam Head Exam: NORMAL INSPECTION - Neck Exam Neck Exam: absent: Meningismus - Respiratory Exam Respiratory Exam: Decreased Breath Sounds - Cardiovascular Exam Cardiovascular Exam: +S1, +S2 - GI/Abdominal Exam GI & Abdominal Exam: Soft. absent: Tenderness Assessment and Plan - Assessment and Plan (Free Text) Plan: Assessment sepsis due to left sided pyelonephritis with E. coli in a patient with probable chronic UPJ obstruction, clinically improving history of severe sepsis secondary to left sided pyelonephritis with gram negative bacilli bacteremia associated with left sided hydronephrosis history of disc herniation in the back Plan on Rocephin; should get 10-14 days of antibiotics; can be switched to PO Levaquin 750 mg daily to complete therapy once ready for discharge follow up Urology evaluation and recommendations for the UPJ obstruction
--- NOTE | 2017-05-31 03:51 | DS ---
HISTORY OF PRESENT ILLNESS: The patient is a 37-year-old, who came in with left flank pain, was found to have UTI, culture grew E. coli, repeat culture is negative. The patient was given IV antibiotics and IV fluid, started to improve. She was evaluated by Dr. Heath, who saw her yesterday and the patient is being discharged today on p.o. antibiotic, Cipro 500 twice a day, for 8 more days since E. coli is sensitive to that. She also had CT scan of the abdomen and pelvis done, shows chronic hydronephrosis. Initially the patient came with high grade fever of 101.8. Her fever broke. She is currently afebrile. PHYSICAL EXAMINATION: GENERAL: On examination today, she is awake, alert, oriented and communicative. VITAL SIGNS: She is afebrile, pulse 84, respirations 16, blood pressure 136/91. LUNGS : Bilateral good airflow. No rhonchi or crackle. HEART: S1 and S2 audible. ABDOMEN: Soft, nontender, no rebound, no guarding. NEUROLOGIC: The patient is awake and alert, able to communicate. LABORATORY DATA: WBC 8.4, hemoglobin 12, hematocrit 35.4, platelets of 263. Chemistry: Sodium 137, potassium 3.6, chloride 107, CO2 of 22, BUN 7, creatinine 0.7, blood sugar of 86. ASSESSMENT: 1. Escherichia coli urinary tract infection. 2. Chronic hydronephrosis. 3. Borderline hypertension. 4. Severe left hydronephrosis, mildly increased in degree compared to prior CT, with no causative obstructing stone identified. Either she has passed the stone or it is chronic obstruction. PLAN: The patient is being discharged home on p.o. Cipro for 1 week. She is given prescription of Flomax 0.4 daily and Pyridium 100 mg twice a day. The patient will be followed as outpatient. Claudy Valdez MD
== END 2017-05-30 15:43 | disposition home or self-care (01) | DRG 690 ==
LOC: ED 00:22 → ERH 02:26 → 5RSO 04:27
PROVIDERS: ADMIT Internal Medicine; ATTEND Internal Medicine
DX: N13.6 Pyonephrosis (principal); B96.20 Unspecified Escherichia coli [E. coli] as the cause of diseases classified elsewhere; D25.9 Leiomyoma of uterus, unspecified; D64.9 Anemia, unspecified; E87.6 Hypokalemia; R03.0 Elevated blood-pressure reading, without diagnosis of hypertension; F17.200 Nicotine dependence, unspecified, uncomplicated; Z87.440 Personal history of urinary (tract) infections; Z87.442 Personal history of urinary calculi; R40.2412 Glasgow coma scale score 13-15, at arrival to emergency department; Z86.19 Personal history of other infectious and parasitic diseases